=== PATIENT | male | born 1950 | race Caucasian/White ===

== ENCOUNTER 2024-06-04 07:28 | Emergency (ER) | payer MEDICARE, OTHER ==
[~2024-06-04] VITALS: Ht 180.3 cm; Wt 88.9 kg
[~2024-06-04 07:28] MED LIST: ASPIR 8181 MG PO; BYSTOLIC5 MG PO; PLAVIX75 MG PO; VYTORIN 10-801 EACH PO; ZESTRIL20 MG PO
[2024-06-04 07:30] VITALS: TEMP 98.1
[2024-06-04] MEDS: Morphine 4mg INJECTION 4 MG/ML INJ IV STA (07:50)
[2024-06-04] MEDS ORDERED: Morphine 2mg Syringe 2 MG/ML SYR ONE (08:05)
[2024-06-04 08:15] LABS: BASOPHILS % 0.2 % (0.0-1.0); EOSINOPHILS % 0.1 % (0.0-6.0); HEMATOCRIT 50.2 % (38.2-49.6); HEMOGLOBIN 15.7 g/dL (14.0-18.0); LYMPHOCYTES # (AUTO) 2.3 (1.0-3.2); MEAN CORPUSCULAR HGB CONC 31.3 g/dL (31-35); MEAN CORPUSCULAR VOLUME 99.2 fL (81-99); MONOCYTES # (AUTO) 2.1 (0.2-0.8); MONOCYTES % 10.9 % (4.4-11.3); NEUTROPHILS # (AUTO) 14.6 (2.1-6.9); NEUTROPHILS % 76.3 % (38.7-80.0); PLATELET COUNT 123 x10e3/uL (140-360); RED BLOOD COUNT 5.06 x10e6/uL (4.3-5.7); RED CELL DISTRIBUTION WIDTH 14.7 % (11.7-14.4); WHITE BLOOD COUNT 19.16 x10e3/uL (4.8-10.8)
[2024-06-04 08:30] LABS: INR 1.06; PROTHROMBIN TIME 14.4 seconds (11.9-14.5)
[2024-06-04 08:31] LABS: PARTIAL THROMBOPLASTIN TIME 27.9 seconds (23.8-35.5)
[2024-06-04 08:45] LABS: ALBUMIN 3.5 g/dL (3.5-5.0); ALBUMIN/GLOBULIN RATIO 0.8 (0.8-2.0); ANION GAP 15.3 mmol/L (8-16); BILIRUBIN,TOTAL 1.7 mg/dL (0.2-1.2); CALCIUM 9.6 mg/dL (8.4-10.2); CREATININE, SERUM 1.04 mg/dL (0.72-1.25); MAGNESIUM 1.9 MG/DL (1.3-2.1); POTASSIUM 4.3 mmol/L (3.5-5.1); TOTAL PROTEIN 7.7 g/dL (6.5-8.1)
[2024-06-04 08:50] LABS: TROPONIN I 0.035 ng/mL (0-0.300)
[2024-06-04] MEDS: LABETALOL HCL 5 MG/ML 20ML VIAL IV STA (09:26)
[2024-06-04] MEDS: ONDANSETRON HCL INJ 2MG/ML 2ML 2 MG/ML VIAL IV STA (09:26)
[2024-06-04] MEDS: SODIUM CHLORIDE 0.9% 1000ML 1,000 ML IV STA (09:41)
[2024-06-04 10:41] VITALS: PULSE 95; RESP 18
[2024-06-04] MEDS ORDERED: IOPAMIDOL 370 MG/ML 100 ML INFUS..BTL INJ ONE (10:41)
[2024-06-04] MEDS ORDERED: HYDROMORPHONE 1MG/1ML INJ ONE (10:56)
[2024-06-04 10:57] VITALS: BP 153/96; PULSE 93; RESP 16; O2SAT 96
[2024-06-04] MEDS: HYDROMORPHONE 1MG/1ML INJ IV STA (10:58)
== END 2024-06-04 11:05 | disposition other institution (70) ==
LOC: ER 07:33
DX: R06.00 Dyspnea, unspecified (principal); J93.9 Pneumothorax, unspecified; S22.41XA Multiple fractures of ribs, right side, initial encounter for closed fracture; S42.031A Displaced fracture of lateral end of right clavicle, initial encounter for closed fracture; W01.0XXA Fall on same level from slipping, tripping and stumbling without subsequent striking against object, initial encounter; Y93.01 Activity, walking, marching and hiking; Y92.481 Parking lot as the place of occurrence of the external cause; I10 Essential (primary) hypertension; E78.5 Hyperlipidemia, unspecified; I25.10 Atherosclerotic heart disease of native coronary artery without angina pectoris; R94.31 Abnormal electrocardiogram [ECG] [EKG]; I25.2 Old myocardial infarction; Z95.1 Presence of aortocoronary bypass graft
CPT/HCPCS: 32557; 36415; 70450; 71045; 71260; 72125; 73030; 73060; 74177; 74470; 80053; 82550; 83735; 83880; 84484; 85025; 85610; 85730; 87040; 93005; 99285; J1171; J2270; J2405; J2470; J2543; J3490; Q9967